=== PATIENT | male | born 1955 | race Caucasian/White ===

== ENCOUNTER 2019-03-12 15:54 | Emergency (ER) | payer OTHER ==
[~2019-03-12] VITALS: Ht 172.7 cm; Wt 69.0 kg
[~2019-03-12 15:54] MED LIST: ASPIRIN EC81 M1 PO; BENADRYL25 MG PO; DOXYCYCLINE 10100 MG PO; PEPCID AC20 M1 PO; PREDNISONE 20 M20 M1 PO
[2019-03-12] MEDS ORDERED: LOVASTATIN 20 M20 MG PO (16:24)
[2019-03-12] MEDS ORDERED: ROBAXIN 750 MG750 MG PO (16:25)
[2019-03-12] MEDS ORDERED: KEFLEX500 M1 PO (17:10)
[2019-03-12 17:52] VITALS: BP 154/78
== END 2019-03-12 17:53 | disposition home or self-care (01) ==
LOC: M.ERS 15:54
DX: S61.412A Laceration without foreign body of left hand, initial encounter (principal); E78.00 Pure hypercholesterolemia, unspecified; F17.210 Nicotine dependence, cigarettes, uncomplicated; Z85.820 Personal history of malignant melanoma of skin; W22.8XXA Striking against or struck by other objects, initial encounter; Y93.89 Activity, other specified; Y92.89 Other specified places as the place of occurrence of the external cause; Y99.8 Other external cause status